=== PATIENT | male | born 1955 | race Caucasian/White ===

== ENCOUNTER 2019-08-26 09:20 | Emergency (ER) | payer OTHER ==
[~2019-08-26] VITALS: Ht 182.9 cm; Wt 93.0 kg
[~2019-08-26 09:20] MED LIST: ALBU90OI INH; ALBU90OI6 INH; ALBU90OI61 INH; AZIT250 PO; COMBIVENT RESPIM4 GM INH; Duoneb 2.5-0.5 M3 ML INH; FLUSAL1005 INH; FLUSAL2505 INH; FLUT220OIA IH; Flomax0.4 MG PO; HYDACE5325 PO; NAPR500 PO; PRED20 PO; SPACE CHAMBER1 EACH MC; TAMS.4ER PO; TIOT18 INH; Ventolin Soln3 ML INH
[2019-08-26] MEDS ORDERED: BUDE6HFA INH ×2 (10:19→11:31)
[2019-08-26] MEDS ORDERED: COMBIVENT RESPIM4 GM INH ×2 (10:20→11:33)
[2019-08-26] MEDS ORDERED: TIOT18 INH ×2 (10:20→11:31)
[2019-08-26] MEDS ORDERED: ALBU90OI INH (10:21)
[2019-08-26] MEDS ORDERED: Ventolin/Prove6.7 GM INH (11:33)
[2019-08-26] MEDS ORDERED: NICO21TP TOP (11:33)
== END 2019-08-26 12:07 | disposition home or self-care (01) ==
LOC: ER 09:20
DX: J44.9 Chronic obstructive pulmonary disease, unspecified (principal); F17.200 Nicotine dependence, unspecified, uncomplicated; Z79.51 Long term (current) use of inhaled steroids
CPT/HCPCS: 99281

== ENCOUNTER 2020-03-15 10:04 | Emergency (ER) | payer OTHER ==
[~2020-03-15] VITALS: Ht 185.4 cm; Wt 113.4 kg
[~2020-03-15 10:04] MED LIST changes: +BUDE6HFA INH; +NICO21TP TOP; +Ventolin/Prove6.7 GM INH
[2020-03-15] MEDS ORDERED: IBUP600 PO (11:17)
== END 2020-03-15 11:39 | disposition home or self-care (01) ==
LOC: ER 10:04
DX: S81.831A Puncture wound without foreign body, right lower leg, initial encounter (principal); J44.9 Chronic obstructive pulmonary disease, unspecified; F17.200 Nicotine dependence, unspecified, uncomplicated; Z79.899 Other long term (current) drug therapy; V28.4XXA Motorcycle driver injured in noncollision transport accident in traffic accident, initial encounter; W22.8XXA Striking against or struck by other objects, initial encounter; Y92.410 Unspecified street and highway as the place of occurrence of the external cause
CPT/HCPCS: 73590; 99283-25

== ENCOUNTER → 2021-12-08 | Outpatient (CLI) | payer MEDICARE, BC, OTHER ==
[~2021-12-08] MED LIST changes: +IBUP600 PO; +Prinivil10 MG PO; +TRELEGY ELLIPT1 EACH INH
[2021-12-08 20:01] LABS: Bun/Creatinine Ratio 19.6 (12.0-20.0); Creatinine, Blood 0.87 mg/dL (0.60-1.20); Potassium, Blood 4.6 mmol/L (3.5-5.5)
== END | disposition home or self-care (01) ==
LOC: LAB SHORT 17:25 → LAB 17:25
PROVIDERS: Physician Assistant
DX: Z79.1 Long term (current) use of non-steroidal anti-inflammatories (NSAID) (principal)
CPT/HCPCS: 80048